=== PATIENT | male | born 1940 | race Hispanic/Latino ===

== ENCOUNTER 2024-02-23 21:21 | Inpatient (IN) | payer OTHER ==
[~2024-02-23] VITALS: Ht 157.5 cm; Wt 71.4 kg
[~2024-02-23 21:21] MED LIST: ALLOPURINOL100 MG PO; ATORVASTATIN CA10 MG PO; BREO ELLIPTA 21 EACH INH; CARVEDILOL3.125 MG PO; FINASTERIDE5 MG PO; FLOMAX0.4 MG PO; LOSARTAN POTASS25 MG PO; NEURONTIN100 MG PO; SPIRONOLACTONE25 MG PO
[2024-02-23] MEDS ORDERED: SODIUM CHLORIDE 0.9% 100 ML ONE (21:36)
[2024-02-23] MEDS ORDERED: IOPAMIDOL 370 MG/ML 100 ML INFUS..BTL INJ ONE (21:37)
[2024-02-23 21:56] LABS: BASOPHILS # (AUTO) 0.1 (0.0-0.1); BASOPHILS % 0.6 % (0.0-1.0); EOSINOPHILS # (AUTO) 0.5 (0.0-0.4); EOSINOPHILS % 4.8 % (0.0-6.0); HEMATOCRIT 35.3 % (38.2-49.6); HEMOGLOBIN 11.2 g/dL (14.0-18.0); LYMPHOCYTES # (AUTO) 4.2 (1.0-3.2); LYMPHOCYTES % 42.9 % (18.0-39.1); MEAN CORPUSCULAR HEMOGLOBIN 31.3 pg (28-32); MEAN CORPUSCULAR HGB CONC 31.7 g/dL (31-35); MEAN CORPUSCULAR VOLUME 98.6 fL (81-99); MONOCYTES # (AUTO) 0.8 (0.2-0.8); MONOCYTES % 7.8 % (4.4-11.3); NEUTROPHILS # (AUTO) 4.2 (2.1-6.9); NEUTROPHILS % 42.8 % (38.7-80.0); PLATELET COUNT 278 x10e3/uL (140-360); RED BLOOD COUNT 3.58 x10e6/uL (4.3-5.7); RED CELL DISTRIBUTION WIDTH 13.5 % (11.7-14.4); WHITE BLOOD COUNT 9.85 x10e3/uL (4.8-10.8)
[2024-02-23 21:59] LABS: INR 1.01; PROTHROMBIN TIME 13.9 seconds (11.9-14.5)
[2024-02-23 22:00] LABS: PARTIAL THROMBOPLASTIN TIME 24.7 seconds (23.8-35.5)
[2024-02-23] MEDS: SODIUM CHLORIDE 0.9% 1000ML 1,000 ML IV ONE (22:12)
[2024-02-23 22:16] LABS: ALBUMIN 3.7 g/dL (3.5-5.0); ALBUMIN/GLOBULIN RATIO 1.3 (0.8-2.0); ANION GAP 16.1 mmol/L (8-16); BILIRUBIN,TOTAL 0.5 mg/dL (0.2-1.2); CALCIUM 9.4 mg/dL (8.4-10.2); CREATININE, SERUM 1.12 mg/dL (0.72-1.25); POTASSIUM 4.1 mmol/L (3.5-5.1); TOTAL PROTEIN 6.5 g/dL (6.5-8.1)
[2024-02-23 23:43] VITALS: PULSE 81; RESP 18; TEMP 97.5
[2024-02-24] VITALS (43 sets, daily range): BP systolic 100–169; BP diastolic 45–91; PULSE 80–117; RESP 11–24; TEMP 97.7–98.6; O2SAT 96–100
[2024-02-24] MEDS: SODIUM CHLORIDE 0.9% 1000ML 1,000 ML IV ONE (01:07)
[2024-02-24] MEDS ORDERED: OMEGA 3 1,0001 EACH PO (05:29)
[2024-02-24] MEDS ORDERED: MELATONIN3 MG PO (05:29)
[2024-02-24] MEDS ORDERED: MAGNESIUM OXID400 MG PO (05:29)
[2024-02-24] MEDS ORDERED: HYDROCHLOROTH12.5 MG PO (05:29)
[2024-02-24] MEDS ORDERED: VITAMIN D3100 GM PO (05:29)
[2024-02-24] MEDS ORDERED: PANTOPRAZOLE SO40 MG PO (05:29)
[2024-02-24] MEDS ORDERED: NAC600 MG (05:29)
[2024-02-24] MEDS ORDERED: ASPIRIN ENTERI325 MG PO (05:29)
[2024-02-24 07:22] LABS: TROPONIN I 0.008 ng/mL (0-0.300)
[2024-02-24 08:18] LABS: HEMATOCRIT 28.8 % (38.2-49.6); HEMOGLOBIN 9.1 g/dL (14.0-18.0)
[2024-02-24 12:42] LABS: HEMATOCRIT 27.2 % (38.2-49.6); HEMOGLOBIN 8.6 g/dL (14.0-18.0)
[2024-02-24 13:13] LABS: TROPONIN I 0.008 ng/mL (0-0.300)
[2024-02-24] MEDS ORDERED: DESMOPRESSIN ACETATE 4 MCG/ML VIAL IV SCH (16:00)
[2024-02-24] MEDS: CARVEDILOL 3.125 MG TAB PO SCH (16:47)
[2024-02-24] MEDS: SODIUM CHLORIDE 0.9% 250ML 250 ML IV ONE (18:00)
[2024-02-24] MEDS: FUROSEMIDE INJ 10 MG/ML 2 ML VIAL IV ONE ×2 (20:14→23:33)
[2024-02-24] MEDS: ATORVASTATIN 10 MG TAB PO SCH (20:15)
[2024-02-25] VITALS (34 sets, daily range): BP systolic 114–158; BP diastolic 51–81; PULSE 68–95; RESP 11–29; TEMP 97.6–98.4; O2SAT 95–100
[2024-02-25] MEDS ORDERED: POTASSIUM CHLORIDE 10MEQ EA PO ONE (01:30)
[2024-02-25 02:06] LABS: HEMATOCRIT 31.3 % (38.2-49.6); HEMOGLOBIN 10.3 g/dL (14.0-18.0)
[2024-02-25 06:38] LABS: HEMATOCRIT 30.8 % (38.2-49.6); HEMOGLOBIN 10.6 g/dL (14.0-18.0)
[2024-02-25 07:07] LABS: ALBUMIN 3.6 g/dL (3.5-5.0); ALBUMIN/GLOBULIN RATIO 1.3 (0.8-2.0); ANION GAP 15.3 mmol/L (8-16); BILIRUBIN,TOTAL 0.8 mg/dL (0.2-1.2); CALCIUM 9.2 mg/dL (8.4-10.2); CREATININE, SERUM 0.8 mg/dL (0.72-1.25); TOTAL PROTEIN 6.3 g/dL (6.5-8.1)
[2024-02-25 07:08] LABS: POTASSIUM 3.3 mmol/L (3.5-5.1)
[2024-02-25 07:41] LABS: TROPONIN I 0.013 ng/mL (0-0.300)
[2024-02-25] MEDS ORDERED: METOLAZONE 5 MG TAB PO ONE (08:30)
[2024-02-25] MEDS: ALLOPURINOL 100 MG TAB PO SCH (10:16)
[2024-02-25] MEDS: LOSARTAN POTASSIUM 25 MG TAB PO SCH (10:16)
[2024-02-25] MEDS: FINASTERIDE 5 MG TAB PO SCH (10:16)
[2024-02-25] MEDS: TAMSULOSIN HCL 0.4 MG CAP PO SCH (10:16)
[2024-02-25 13:09] LABS: CHOL/HDL RATIO 3.3 (3.9-4.7); MAGNESIUM 1.5 MG/DL (1.3-2.1); PHOSPHORUS 2.4 MG/DL (2.3-4.7)
[2024-02-25 13:31] LABS: FREE T4 (FREE THYROXINE) 1.16 ng/dL (0.8-1.8); THYROID STIMULATING HORMONE 1.304 uIU/mL (0.350-4.940)
[2024-02-25] MEDS: FLUTICASONE INH SCH (14:25)
[2024-02-25] MEDS: VILANTEROL INH SCH (14:25)
[2024-02-25 15:47] LABS: BASOPHILS % 0.5 % (0.0-1.0); EOSINOPHILS # (AUTO) 0.2 (0.0-0.4); EOSINOPHILS % 3.4 % (0.0-6.0); HEMATOCRIT 32.4 % (38.2-49.6); HEMOGLOBIN 10.7 g/dL (14.0-18.0); LYMPHOCYTES # (AUTO) 1.5 (1.0-3.2); LYMPHOCYTES % 23.1 % (18.0-39.1); MEAN CORPUSCULAR VOLUME 93.9 fL (81-99); MONOCYTES # (AUTO) 0.6 (0.2-0.8); NEUTROPHILS % 62.2 % (38.7-80.0); PLATELET COUNT 211 x10e3/uL (140-360); RED BLOOD COUNT 3.45 x10e6/uL (4.3-5.7); RED CELL DISTRIBUTION WIDTH 14.6 % (11.7-14.4)
[2024-02-25] MEDS: MAGNESIUM SULF 1GRAM/DEXTROSE 100 ML IV ONE (23:55)
[2024-02-26] VITALS (26 sets, daily range): BP systolic 104–147; BP diastolic 49–69; PULSE 62–90; RESP 10–34; TEMP 97.7–98.1; O2SAT 95–100
[2024-02-26 00:25] LABS: HEMATOCRIT 30.4 % (38.2-49.6); HEMOGLOBIN 10.2 g/dL (14.0-18.0)
[2024-02-26] MEDS: MAGNESIUM SULFATE 2GM/50ML 50 ML IV ONE ×2 (01:52→02:38)
[2024-02-26] MEDS: POTASSIUM CHLORIDE 10MEQ EA PO ONE (04:44)
[2024-02-26 06:44] LABS: BASOPHILS # (AUTO) 0.1 (0.0-0.1); BASOPHILS % 0.9 % (0.0-1.0); EOSINOPHILS # (AUTO) 0.3 (0.0-0.4); HEMATOCRIT 31.6 % (38.2-49.6); HEMOGLOBIN 10.5 g/dL (14.0-18.0); LYMPHOCYTES # (AUTO) 1.3 (1.0-3.2); LYMPHOCYTES % 22.8 % (18.0-39.1); MEAN CORPUSCULAR HEMOGLOBIN 30.5 pg (28-32); MEAN CORPUSCULAR HGB CONC 33.2 g/dL (31-35); MEAN CORPUSCULAR VOLUME 91.9 fL (81-99); MONOCYTES # (AUTO) 0.7 (0.2-0.8); MONOCYTES % 11.3 % (4.4-11.3); NEUTROPHILS # (AUTO) 3.5 (2.1-6.9); NEUTROPHILS % 59.3 % (38.7-80.0); PLATELET COUNT 196 x10e3/uL (140-360); RED BLOOD COUNT 3.44 x10e6/uL (4.3-5.7); RED CELL DISTRIBUTION WIDTH 13.6 % (11.7-14.4); WHITE BLOOD COUNT 5.84 x10e3/uL (4.8-10.8)
[2024-02-26] MEDS ORDERED: DESMOPRESSIN ACETATE 4 MCG/ML VIAL IV STA (12:35)
[2024-02-26] MEDS: OMEGA 3 POLYUNSAT FATTY ACIDS 1000 MG SOFTGEL PO SCH (13:32)
[2024-02-26] MEDS: CHOLECALCIFEROL 1,000 UNIT TAB PO SCH (13:33)
[2024-02-26] MEDS: MAGNESIUM OXIDE 400 MG TAB PO SCH (13:33)
[2024-02-26 14:52] LABS: HEMATOCRIT 28.4 % (38.2-49.6); HEMOGLOBIN 9.4 g/dL (14.0-18.0)
[2024-02-26 15:10] LABS: CALCIUM 7.6 mg/dL (8.4-10.2); CREATININE, SERUM 0.73 mg/dL (0.72-1.25)
[2024-02-26] MEDS: GABAPENTIN 300 MG CAP PO SCH (17:53)
[2024-02-26] MEDS: HYDROCHLOROTHIAZIDE 25 MG TAB PO SCH (21:17)
[2024-02-27] VITALS (23 sets, daily range): BP systolic 97–140; BP diastolic 30–77; PULSE 68–93; RESP 11–23; TEMP 97.7–100; O2SAT 96–100
[2024-02-27 05:46] LABS: HEMATOCRIT 25.7 % (38.2-49.6); HEMOGLOBIN 8.5 g/dL (14.0-18.0)
[2024-02-27 07:51] LABS: % IRON SATURATION 17 % (15-50); IRON 52 ug/dL (65-175); TOTAL IRON BINDING CAPACITY 311 ug/dL (261-478); TRANSFERRIN 222 mg/dL (174-364)
[2024-02-27] MEDS: SPIRONOLACTONE 25 MG TAB PO SCH (07:51)
[2024-02-27] MEDS: SODIUM CHLORIDE 0.9% 250ML 250 ML ONE (07:56)
[2024-02-27 08:52] LABS: FOLATE 17.4 ng/mL (7.0-15.4)
[2024-02-27 12:57] LABS: HEMATOCRIT 25.5 % (38.2-49.6); HEMOGLOBIN 8.5 g/dL (14.0-18.0)
[2024-02-27] MEDS: IRON SUCROSE 100 MG in SODIUM CHLORIDE 0.9% 100 ML IV SCH (13:59)
[2024-02-27 15:53] LABS: BASOPHILS % 0.4 % (0.0-1.0); EOSINOPHILS # (AUTO) 0.1 (0.0-0.4); EOSINOPHILS % 2.5 % (0.0-6.0); HEMATOCRIT 25.2 % (38.2-49.6); HEMOGLOBIN 8.4 g/dL (14.0-18.0); LYMPHOCYTES # (AUTO) 1.1 (1.0-3.2); LYMPHOCYTES % 19.7 % (18.0-39.1); MEAN CORPUSCULAR HGB CONC 33.3 g/dL (31-35); MONOCYTES # (AUTO) 0.6 (0.2-0.8); MONOCYTES % 10.1 % (4.4-11.3); NEUTROPHILS # (AUTO) 3.7 (2.1-6.9); NEUTROPHILS % 66.4 % (38.7-80.0); PLATELET COUNT 156 x10e3/uL (140-360); RED BLOOD COUNT 2.71 x10e6/uL (4.3-5.7); RED CELL DISTRIBUTION WIDTH 13.4 % (11.7-14.4); WHITE BLOOD COUNT 5.54 x10e3/uL (4.8-10.8)
[2024-02-27] MEDS: SODIUM CHLORIDE 0.9% 1000ML 1,000 ML IV SCH (18:49)
[2024-02-27] MEDS: MELATONIN 5 MG TABLET PO PRN (20:03)
[2024-02-27 23:05] LABS: CREATININE,URINE RANDOM 62.64 mg/dL (63-166); SODIUM,URINE 131 mmol/L
[2024-02-27 23:07] LABS: TOTAL PROTEIN, URINE < 6.8 mg/dL (1-14)
[2024-02-28] VITALS (20 sets, daily range): BP systolic 96–155; BP diastolic 28–67; PULSE 69–92; RESP 12–19; TEMP 97.7–98; O2SAT 95–100
[2024-02-28 06:31] LABS: BASOPHILS % 0.6 % (0.0-1.0); EOSINOPHILS # (AUTO) 0.3 (0.0-0.4); EOSINOPHILS % 5.4 % (0.0-6.0); HEMATOCRIT 22.9 % (38.2-49.6); LYMPHOCYTES # (AUTO) 1.1 (1.0-3.2); LYMPHOCYTES % 22.6 % (18.0-39.1); MEAN CORPUSCULAR HEMOGLOBIN 30.9 pg (28-32); MEAN CORPUSCULAR HGB CONC 34.9 g/dL (31-35); MEAN CORPUSCULAR VOLUME 88.4 fL (81-99); MONOCYTES # (AUTO) 0.5 (0.2-0.8); MONOCYTES % 10.2 % (4.4-11.3); NEUTROPHILS # (AUTO) 2.9 (2.1-6.9); PLATELET COUNT 249 x10e3/uL (140-360); RED BLOOD COUNT 2.59 x10e6/uL (4.3-5.7); RED CELL DISTRIBUTION WIDTH 13.5 % (11.7-14.4); WHITE BLOOD COUNT 4.82 x10e3/uL (4.8-10.8)
[2024-02-28 06:42] LABS: ANION GAP 11.8 mmol/L (8-16); CALCIUM 8.7 mg/dL (8.4-10.2); CREATININE, SERUM 0.78 mg/dL (0.72-1.25); MAGNESIUM 1.5 MG/DL (1.3-2.1); PHOSPHORUS 2.9 MG/DL (2.3-4.7); POTASSIUM 3.8 mmol/L (3.5-5.1)
[2024-02-28] MEDS: MAGNESIUM SULF 1GRAM/DEXTROSE 100 ML IV ONE (08:59)
[2024-02-28] MEDS: MAGNESIUM SULFATE 2GM/50ML 50 ML IV ONE (09:00)
[2024-02-28] MEDS: POLYETHYLENE GLYCOL 3350 17 GM PACK PO ONE (14:43)
[2024-02-28] MEDS ORDERED: POLYETHYLENE GLYCOL 3350 17 GM PACK PO PRN (14:45)
[2024-02-28 15:35] LABS: BLOOD UREA NITROGEN 12 mg/dL (7-26); GLUCOSE 98 mg/dL (74-118); OSMOLALITY,SERUM 257 mOsm/kg (278-305); SODIUM 128 mmol/L (136-145)
[2024-02-28] MEDS: DOCUSATE SODIUM 100 MG CAP PO SCH (16:34)
[2024-02-28] MEDS ORDERED: DOCUSATE SODIUM LIQD 100 MG/10 ML UDC NG SCH (17:00)
[2024-02-29] VITALS (18 sets, daily range): BP systolic 97–142; BP diastolic 38–76; PULSE 73–93; RESP 12–24; TEMP 97.6–98.3; O2SAT 91–100
[2024-02-29 06:21] LABS: HEMATOCRIT 27.8 % (38.2-49.6); HEMOGLOBIN 8.9 g/dL (14.0-18.0)
[2024-02-29 06:40] LABS: ANION GAP 14.9 mmol/L (8-16); CALCIUM 9.3 mg/dL (8.4-10.2); CREATININE, SERUM 0.81 mg/dL (0.72-1.25); POTASSIUM 3.9 mmol/L (3.5-5.1)
[2024-02-29] MEDS: BISACODYL 5 MG TAB EC PO ONE ×3 (14:47→17:23)
[2024-02-29] MEDS: CITRATE OF MAGNESIA 300ML BOTTLE PO ONE ×2 (17:23→23:12)
[2024-03-01] VITALS (9 sets, daily range): BP systolic 112–182; BP diastolic 54–111; PULSE 80–96; RESP 18–19; TEMP 97.5–98.1; O2SAT 99–100
[2024-03-01 05:57] LABS: BASOPHILS # (AUTO) 0.1 (0.0-0.1); BASOPHILS % 0.6 % (0.0-1.0); EOSINOPHILS # (AUTO) 0.2 (0.0-0.4); EOSINOPHILS % 2.5 % (0.0-6.0); HEMATOCRIT 30.2 % (38.2-49.6); HEMOGLOBIN 9.5 g/dL (14.0-18.0); LYMPHOCYTES # (AUTO) 1.4 (1.0-3.2); LYMPHOCYTES % 16.1 % (18.0-39.1); MEAN CORPUSCULAR HEMOGLOBIN 30.7 pg (28-32); MEAN CORPUSCULAR HGB CONC 31.5 g/dL (31-35); MEAN CORPUSCULAR VOLUME 97.7 fL (81-99); MONOCYTES # (AUTO) 0.8 (0.2-0.8); MONOCYTES % 9.8 % (4.4-11.3); NEUTROPHILS # (AUTO) 5.9 (2.1-6.9); NEUTROPHILS % 69.1 % (38.7-80.0); PLATELET COUNT 305 x10e3/uL (140-360); RED BLOOD COUNT 3.09 x10e6/uL (4.3-5.7); RED CELL DISTRIBUTION WIDTH 14.9 % (11.7-14.4); WHITE BLOOD COUNT 8.53 x10e3/uL (4.8-10.8)
[2024-03-01 06:25] LABS: ALBUMIN/GLOBULIN RATIO 1.3 (0.8-2.0); ANION GAP 14.8 mmol/L (8-16); BILIRUBIN,TOTAL 0.3 mg/dL (0.2-1.2); CALCIUM 9.7 mg/dL (8.4-10.2); CREATININE, SERUM 0.86 mg/dL (0.72-1.25); POTASSIUM 3.8 mmol/L (3.5-5.1)
[2024-03-01] MEDS: CITRATE OF MAGNESIA 300ML BOTTLE PO ONE (08:15)
[2024-03-01] MEDS ORDERED: PROPOFOL IV EMULSION 10 MG/ML 20 ML VIAL ONE (12:33)
[2024-03-01] MEDS ORDERED: LIDOCAINE HCL 2% LOCAL INJ 5 ML SDV VIAL INJ ONE (12:33)
[2024-03-01] MEDS ORDERED: METOPROLOL TARTRATE INJ 1 MG/ML VIAL ONE (14:32)
[2024-03-02 03:14] VITALS: BP 128/68; PULSE 78; RESP 18; TEMP 97.7; O2SAT 100
[2024-03-02 06:27] LABS: BASOPHILS # (AUTO) 0.1 (0.0-0.1); BASOPHILS % 0.6 % (0.0-1.0); EOSINOPHILS # (AUTO) 0.1 (0.0-0.4); EOSINOPHILS % 1.5 % (0.0-6.0); HEMATOCRIT 29.4 % (38.2-49.6); LYMPHOCYTES # (AUTO) 1.8 (1.0-3.2); LYMPHOCYTES % 22.9 % (18.0-39.1); MEAN CORPUSCULAR HEMOGLOBIN 30.7 pg (28-32); MEAN CORPUSCULAR HGB CONC 30.6 g/dL (31-35); MEAN CORPUSCULAR VOLUME 100.3 fL (81-99); MONOCYTES # (AUTO) 0.7 (0.2-0.8); MONOCYTES % 8.5 % (4.4-11.3); NEUTROPHILS # (AUTO) 5.2 (2.1-6.9); NEUTROPHILS % 65.4 % (38.7-80.0); PLATELET COUNT 314 x10e3/uL (140-360); RED BLOOD COUNT 2.93 x10e6/uL (4.3-5.7); RED CELL DISTRIBUTION WIDTH 15.6 % (11.7-14.4); WHITE BLOOD COUNT 7.98 x10e3/uL (4.8-10.8)
[2024-03-02 06:59] LABS: ANION GAP 14.5 mmol/L (8-16); CALCIUM 9.2 mg/dL (8.4-10.2); CREATININE, SERUM 0.91 mg/dL (0.72-1.25); POTASSIUM 3.5 mmol/L (3.5-5.1)
[2024-03-02 07:49] VITALS: BP 119/98; PULSE 66; RESP 18; TEMP 97.6; O2SAT 99
[2024-03-02 08:00] VITALS: BP 119/98; PULSE 66; RESP 18; TEMP 97.6; O2SAT 99
[2024-03-02 12:00] VITALS: BP 120/64; PULSE 83; RESP 18; TEMP 97.8; O2SAT 100
[2024-03-02] MEDS ORDERED: MIRALAX17 GM PO (13:57)
[2024-03-02] MEDS ORDERED: ONDANSETRON ODT4 MG PO (13:57)
[2024-03-02] MEDS ORDERED: FERROUS SULFAT325 MG PO (13:57)
[2024-03-02] MEDS ORDERED: VITAMIN C 500500 MG PO (13:57)
== END 2024-03-02 15:24 | disposition home or self-care (01) | DRG 378 ==
LOC: ER 21:25 → ERHOLD 02-24 01:04 → ICU 02-24 01:29 → MED/SURG2 02-29 21:28
PROVIDERS: ADMIT Internal Medicine; ATTEND Internal Medicine
PROC: 30233N1 Transfusion of Nonautologous Red Blood Cells into Peripheral Vein, Percutaneous Approach (ICD-10-PCS; 2024-02-24)
PROC: 30233R1 Transfusion of Nonautologous Platelets into Peripheral Vein, Percutaneous Approach (ICD-10-PCS; 2024-02-24)
PROC: 4A033R1 Measurement of Arterial Saturation, Peripheral, Percutaneous Approach (ICD-10-PCS; 2024-02-28)
PROC: 0DBK8ZZ Excision of Ascending Colon, Via Natural or Artificial Opening Endoscopic (ICD-10-PCS; principal; 2024-03-01 14:04)
DX: K57.31 Diverticulosis of large intestine without perforation or abscess with bleeding (principal); E87.1 Hypo-osmolality and hyponatremia; I50.32 Chronic diastolic (congestive) heart failure; I11.0 Hypertensive heart disease with heart failure; N30.90 Cystitis, unspecified without hematuria; K63.5 Polyp of colon; E78.5 Hyperlipidemia, unspecified; D50.0 Iron deficiency anemia secondary to blood loss (chronic); E87.6 Hypokalemia; I45.9 Conduction disorder, unspecified; E83.42 Hypomagnesemia; K21.9 Gastro-esophageal reflux disease without esophagitis; M10.9 Gout, unspecified; N40.0 Benign prostatic hyperplasia without lower urinary tract symptoms; K64.8 Other hemorrhoids; F41.9 Anxiety disorder, unspecified; T50.2X5A Adverse effect of carbonic-anhydrase inhibitors, benzothiadiazides and other diuretics, initial encounter; Z86.11 Personal history of tuberculosis
CPT/HCPCS: 36415; 45378; 45385; 74174; 80048; 80053; 80061; 82550; 82570; 82607; 82746; 82947; 83036; 83540; 83690; 83735; 83930; 83935; 84100; 84156; 84295; 84300; 84439; 84443; 84466; 84484; 84520; 84550; 85014; 85018; 85025; 85045; 85610; 85730; 86850; 86900; 86920; 88305; 93005; 94760; 94799; 99252; 99284; J1756; J1940; J2003; J2470; J3475; J7030; J7050; P9016; P9034; Q9967

== ENCOUNTER 2024-04-28 06:45 | Observation (INO) | payer OTHER ==
[2024-04-26 15:55] LABS: BASOPHILS % 0.7 % (0.0-1.0); EOSINOPHILS # (AUTO) 0.2 (0.0-0.4); EOSINOPHILS % 3.8 % (0.0-6.0); HEMATOCRIT 38.8 % (38.2-49.6); HEMOGLOBIN 12.7 g/dL (14.0-18.0); LYMPHOCYTES # (AUTO) 1.2 (1.0-3.2); LYMPHOCYTES % 20.6 % (18.0-39.1); MEAN CORPUSCULAR HEMOGLOBIN 30.7 pg (28-32); MEAN CORPUSCULAR HGB CONC 32.7 g/dL (31-35); MEAN CORPUSCULAR VOLUME 93.7 fL (81-99); MONOCYTES # (AUTO) 0.4 (0.2-0.8); NEUTROPHILS % 68.2 % (38.7-80.0); PLATELET COUNT 248 x10e3/uL (140-360); RED BLOOD COUNT 4.14 x10e6/uL (4.3-5.7); RED CELL DISTRIBUTION WIDTH 13.2 % (11.7-14.4); WHITE BLOOD COUNT 5.82 x10e3/uL (4.8-10.8)
[2024-04-26 16:34] LABS: ALBUMIN 4.3 g/dL (3.5-5.0); ALBUMIN/GLOBULIN RATIO 1.3 (0.8-2.0); ANION GAP 13.2 mmol/L (8-16); BILIRUBIN,TOTAL 0.3 mg/dL (0.2-1.2); CALCIUM 10.1 mg/dL (8.4-10.2); CREATININE, SERUM 0.98 mg/dL (0.72-1.25); POTASSIUM 4.2 mmol/L (3.5-5.1); TOTAL PROTEIN 7.7 g/dL (6.5-8.1)
[2024-04-28] VITALS (7 sets, daily range): BP systolic 152–156; BP diastolic 58–74; PULSE 70–77; RESP 17–18; TEMP 97.6–98.2; O2SAT 98–100
[~2024-04-28] VITALS: Ht 157.5 cm; Wt 69.1 kg
[~2024-04-28 06:45] MED LIST changes: +ASPIRIN ENTERI325 MG PO; +FERROUS SULFAT325 MG PO; +HYDROCHLOROTH12.5 MG PO; +MAGNESIUM OXID400 MG PO; +MELATONIN3 MG PO; +MIRALAX17 GM PO; +NAC600 MG; +OMEGA 3 1,0001 EACH PO; +ONDANSETRON ODT4 MG PO; +PANTOPRAZOLE SO40 MG PO; +VITAMIN C 500500 MG PO; +VITAMIN D3100 GM PO
[2024-04-28] MEDS: LACTATED RINGER'S 1,000 ML ONE (07:34)
[2024-04-28] MEDS ORDERED: PROPOFOL IV EMULSION 10 MG/ML 20 ML VIAL ONE ×2 (07:46→08:14)
[2024-04-28] MEDS ORDERED: LIDOCAINE HCL 2% LOCAL INJ 5 ML SDV VIAL INJ ONE (08:14)
[2024-04-28] MEDS ORDERED: ONDANSETRON HCL INJ 2MG/ML 2ML 2 MG/ML VIAL ONE ×2 (08:14→08:16)
[2024-04-28] MEDS ORDERED: FENTANYL CITRATE/PF 100MCG/2 ML INJ ONE (08:15)
[2024-04-28] MEDS ORDERED: SEVOFLURANE INHAL SOLN 250 ML PEN BTL ONE (10:07)
[2024-04-28] MEDS ORDERED: KETOROLAC TROMETHAMINE 30 MG/ML VIAL ONE (10:24)
[2024-04-28] MEDS ORDERED: DEXAMETHASONE SOD PHOS INJ 4 MG/ML SDV ONE (10:24)
[2024-04-28] MEDS ORDERED: SUGAMMADEX SODIUM 200 MG/2 ML VIAL IV ONE (10:26)
[2024-04-28] MEDS: HYDROMORPHONE 1MG/1ML INJ IV PRN (11:34)
[2024-04-28] MEDS: SODIUM CHLORIDE 0.9% 1000ML 1,000 ML IV SCH (11:34)
[2024-04-28] MEDS: ACETAMINOPHEN 1000 MG/100 ML IV PRN (14:44)
[2024-04-28] MEDS: CARVEDILOL 3.125 MG TAB PO SCH (17:06)
[2024-04-28] MEDS: HYDROCODONE/APAP 5MG-325MG TAB PO PRN (19:20)
[2024-04-29 03:18] VITALS: BP 167/82; PULSE 79; RESP 18; TEMP 98; O2SAT 99
[2024-04-29 05:23] LABS: BASOPHILS % 0.4 % (0.0-1.0); EOSINOPHILS # (AUTO) 0.1 (0.0-0.4); EOSINOPHILS % 1.5 % (0.0-6.0); HEMATOCRIT 40.7 % (38.2-49.6); HEMOGLOBIN 13.6 g/dL (14.0-18.0); LYMPHOCYTES # (AUTO) 1.5 (1.0-3.2); LYMPHOCYTES % 18.2 % (18.0-39.1); MEAN CORPUSCULAR HEMOGLOBIN 31.1 pg (28-32); MEAN CORPUSCULAR HGB CONC 33.4 g/dL (31-35); MEAN CORPUSCULAR VOLUME 93.1 fL (81-99); MONOCYTES # (AUTO) 0.7 (0.2-0.8); MONOCYTES % 8.2 % (4.4-11.3); NEUTROPHILS # (AUTO) 5.8 (2.1-6.9); NEUTROPHILS % 71.2 % (38.7-80.0); PLATELET COUNT 275 x10e3/uL (140-360); RED BLOOD COUNT 4.37 x10e6/uL (4.3-5.7); RED CELL DISTRIBUTION WIDTH 12.9 % (11.7-14.4); WHITE BLOOD COUNT 8.07 x10e3/uL (4.8-10.8)
[2024-04-29 05:56] LABS: CALCIUM 10.2 mg/dL (8.4-10.2); CREATININE, SERUM 0.9 mg/dL (0.72-1.25)
[2024-04-29] MEDS: ONDANSETRON HCL INJ 2MG/ML 2ML 2 MG/ML VIAL IV PRN (07:32)
[2024-04-29 08:00] VITALS: BP 152/76; PULSE 85; RESP 18; TEMP 98.3; O2SAT 100
[2024-04-29] MEDS: LOSARTAN POTASSIUM 25 MG TAB PO SCH (09:13)
[2024-04-29] MEDS: TAMSULOSIN HCL 0.4 MG CAP PO SCH (09:13)
[2024-04-29] MEDS: SPIRONOLACTONE 25 MG TAB PO SCH (09:14)
[2024-04-29 11:00] VITALS: BP 144/78; PULSE 80; RESP 18; TEMP 98.3; O2SAT 98
== END 2024-04-29 14:34 | disposition home or self-care (01) ==
LOC: OR 06:45 → PACU V 10:17 → MED/SURG 11:06
PROVIDERS: ADMIT Surgery; ATTEND Surgery
DX: K64.8 Other hemorrhoids (principal); K64.5 Perianal venous thrombosis; I10 Essential (primary) hypertension; N40.0 Benign prostatic hyperplasia without lower urinary tract symptoms; Z01.812 Encounter for preprocedural laboratory examination; Z01.818 Encounter for other preprocedural examination
CPT/HCPCS: 36415 ×2; 46260; 71046; 80048; 80053; 85025 ×2; 88304; G0378 ×2; J0131; J0694; J1171 ×2; J2003; J2405 ×2; J3010; J7030; J7121; J0690; J1100; J1885